=== PATIENT | female | born 1940 | race Caucasian/White ===

== ENCOUNTER 2016-06-28 20:52 | Inpatient (IN) | payer BC, MEDICARE ==
--- NOTE | ~2016-06-28 | CT71 ---
[facility] A Service of [facility] & [facility] RADIOLOGY TEXT RESULTS PATIENT: SUNNY HENDERSON LOCATION: [facility] 227-01 : 42 UNIT #: [id number] AGE: [address]: Uri Tse MD SEX: F ORDER DR: [id number] [facility] [address]. [place], [place] [address] [id number] I MR#: [id number] Acc #: [id number] NAME: SUNNY HENDERSON. : 1940 SEX: F STUDY DATE/TIME: 06/28/2016 19:31 UNIT: CEDOF ROOM: 14739 STUDY DESCRIPTION: CT Head Wo Contrast Attending Physician: Uri Tse M.D. Ordering Physician: Tamika Jovel M.D. Primary Care Physician: Efraín Tse M.D. MEDICAL IMAGING REPORT This report is preliminary unless electronic signature is present EXAM CT head without IV contrast. COMPARISON STUDIES August 28, 2013, January 22, 2007. INDICATIONS 76-year-old female with altered mental status, dizziness and confusion today. TECHNIQUE This CT exam was performed with one or more of the following radiation dose reduction techniques: automatic exposure control, adjustment of mA and/or kV according to patient size, and iterative reconstruction. 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 Visualized mastoid air cells and middle ears are well-aerated. Mucous retention cyst versus polyp is stable in the posterior left sphenoid sinus. Stable nonspecific calcification involving the left globe. There is no abnormal extraaxial fluid collection. No mass effect. No acute intracranial hemorrhage. 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 There is mild cerebral and cerebellar volume loss. This is grossly stable. There is mild bilateral white matter periventricular hypoattenuation which is stable, consistent with mild chronic small vessel ischemic change. No convincing evidence of acute ischemia. IMPRESSION 1. No acute intracranial abnormality. Mild chronic small vessel ischemic changes are stable. 2. There is stable mild cerebral and cerebellar volume loss. 3. Small mucous retention cyst versus polyp in the left sphenoid [facility] A Service of [facility] & [facility] RADIOLOGY TEXT RESULTS PATIENT: SUNNY HENDERSON LOCATION: [place] [address] : 42 UNIT #: [id number] AGE: [address]: Uri Tse MD SEX: F ORDER DR: maritza dailey. 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 Dictated by... Wil Mckeon M.D. THIS IS AN ELECTRONICALLY VERIFIED REPORT Wil Mckeon M.D. at 07/02/2016 1:23 PM BLM/pcl TD: 06/28/2016 22:36 JOB #: [id number] MEDICAL IMAGING REPORT Page 1 of 1 COPY
--- NOTE | ~2016-06-28 | DS ---
Unit #: [id number] #: [id number] Patient: SUNNY HENDERSON [id number] [address] [place], [place] [address] [id number] I MR#: [id number] NAME: SUNNY HENDERSON. ROOM: 227 Age: 76 Sex: F Admission Date: 06/28/2016 : 1940 Discharge Date: 07/01/2016 Attending Physician: Uri Tse M.D. Primary Care Physician: Efraín Tse M.D. DISCHARGE SUMMARY PRINCIPAL DISCHARGE DIAGNOSES 1. Acute mental status change secondary to delirium, secondary to urinary tract infection. 2. ESBL e-coli urinary tract infection. 3. Type 2 diabetes mellitus with hypoglycemia. 4. Microcytic anemia with low normal B12. 5. Mild renal insufficiency of unknown duration. 6. Hypertension. 7. Osteoporosis. PROCEDURES PERFORMED None. CONSULTANTS None. REASON FOR HOSPITALIZATION. The patient is a 76-year-old white female with a history of type 2 diabetes mellitus, hypertension and osteoporosis, admitted through the emergency room with mild confusion, urinary tract infection, afebrile, white count normal, mild renal insufficiency, urinalysis consistent with urinary tract infection, mild anemia with slightly low MCV. Chest x-ray with cardiomegaly. No active disease. CT scan of the head no active disease. The patient was admitted for further evaluation and therapy. HOSPITAL COURSE The patient was started on IV fluids. Her blood sugar was 67, so her diabetic medications were held. She was placed on Accu-Cheks morning and evening. DVT prophylaxis with Lovenox. Iron, B12 and folic acid were sent, as well as urine culture. Her B12 was only 188. Folic acid, ferritin, iron and TIBC were normal. She was started on IM B12 while here, which will be switched to sublingual. Repeat BMP showed her creatinine to be 1.5 with a GFR of 34. Urine culture grew greater than 105 ESBL e-coli sensitive to Macrobid, resistant to Bactrim, obviously cephalosporins and ampicillin. Note that her lactic was normal on admission. Showed slight improvement in renal function. CT scan of the head without contrast on admission showed on active disease. EKG showed a left bundle branch block, which was no change from previous tracings. In any case, the patient is asymptomatic now, even though she is not on appropriate antibiotics. DISCHARGE MEDICATIONS 1. Macrobid one p.o. b.i.d. for seven days. 2. She is to discontinue her Glucophage and Micronase until seen. Unit #: [id number] #: [id number] Patient: SUNNY HENDERSON 3. She is on Lopressor 25 mg b.i.d. 4. Evista 60 mg p.o. daily. 5. B12 1000 mcg sublingual daily. FOLLOWUP Will need to follow up with a CBC, BMP and urinalysis in the office. DIET Constant carb diet. Dictated by... Uri Tse M.D. VERA/david TD: 07/02/2016 11:28 JOB #: [id number] DISCHARGE SUMMARY Page 1 of 1 X Uri Tse MD X DISCHARGE SUMMARY
--- NOTE | ~2016-06-28 | EKG ---
PATIENT: SUNNY HENDERSON UNIT #: [id number] Ventricular Rate: 74 BPM Atrial Rate: 74 BPM P-R Interval: 174 ms QRS Duration: 126 ms Q-T Interval: 440 ms QTC Calculation(Bezet): 488 ms P [place]: 43 degrees Calculated R [place]: 7 degrees Calculated T [place]: 108 degrees Diagnosis Line: Normal sinus rhythm Diagnosis Line: Left bundle branch block with repolarization Diagnosis Line: abnormality Diagnosis Line: Abnormal ECG Diagnosis Line: When compared with ECG of 24-JUL-2015 15:28, Diagnosis Line: No significant change was found Diagnosis Line: Confirmed by QUANG CAMPO MD ([id number]) on 06/29/2016 Diagnosis Line: 9:40:13 AM INTERPRETING MD: JAHAIRA MAE
--- NOTE | ~2016-06-28 | CR72 ---
[facility] A Service of [facility] & [facility] RADIOLOGY TEXT RESULTS PATIENT: SUNNY HENDERSON LOCATION: [place] [address] : 42 UNIT #: [id number] AGE: [address]: Uri Tse MD SEX: F ORDER DR: [id number] [facility] [address]. [place], [place] [address] [id number] E MR#: [id number] #: [id number] NAME: SUNNY HENDERSON. : 1940 SEX: F STUDY DATE/TIME: 06/28/2016 18:49 UNIT: [facility] ROOM: STUDY DESCRIPTION: CR Chest Single View Portable Attending Physician: Tamika Jovel M.D. Ordering Physician: Tamika Jovel M.D. Primary Care Physician: Efraín Tse M.D. MEDICAL IMAGING REPORT This report is preliminary unless electronic signature is present EXAM Portable chest 06/28/2016 HISTORY Fever and nausea for 2 weeks. FINDINGS There is mild cardiac enlargement. There is poor inspiratory result with bibasilar atelectasis. The upper lungs are clear. There are no pleural effusions. Degenerative change and scoliosis in the thoracic spine. Old fracture deformity involving the mid-right clavicle. IMPRESSION Cardiomegaly. No active pulmonary disease. Dictated by... Saul Pinto M.D. THIS IS AN ELECTRONICALLY VERIFIED REPORT Saul Pinto M.D. at 06/29/2016 2:13 PM KRT/pcl TD: 06/28/2016 21:56 JOB #: [id number] MEDICAL IMAGING REPORT Page 1 of 1 COPY
--- NOTE | ~2016-06-28 | HP ---
Unit #: [id number] #: [id number] Patient: SUNNY HENDERSON [id number] [address] [address] [id number] I MR#: [id number] NAME: SUNNY HENDERSON. ROOM: 215 Age: 76 Sex: F Admission Date: 06/28/2016 : 1940 Attending Physician: Uri Tse M.D. Primary Care Physician: Efraín Tse M.D. HISTORY AND PHYSICAL HISTORY OF PRESENT ILLNESS 76-year-old white female with history of type 2 diabetes mellitus, hypertension, osteoporosis, hiatal hernia repair, admitted through the emergency room with mental status changes and urinary tract infection. Currently asymptomatic, afebrile, normal white count, slightly anemia, slight renal insufficiency, obvious abnormal urinalysis. Chest x-ray - cardiomegaly, no active disease. CT scan of the head - no active disease. Has been admitted for treatment for the urinary tract infection. ALLERGIES She has stated allergy to codeine. MEDICATIONS Her medications prior to admission: 1. Glucophage 850 mg b.i.d. 2. Micronase 5 mg b.i.d. 3. Metoprolol tartrate 25 mg b.i.d. 4. Evista 60 mg daily. PAST SURGICAL HISTORY 1. Hiatal hernia repair. 2. Left knee scope. 3. Umbilical hernia repair. 4. Tubal ligation. 5. Tonsillectomy. 6. Hysterectomy. 7. Varicose vein stripping. PAST MEDICAL HISTORY 1. Hypertension. 2. Type 2 diabetes mellitus. 3. Osteoporosis. SOCIAL HISTORY Employed at [employer]. Nonsmoker, nondrinker. No street drug use. FAMILY HISTORY Noncontributory. PHYSICAL EXAMINATION GENERAL: She is awake, alert, oriented x3, in no acute distress. VITAL SIGNS: Afebrile. Pulse 67, respirations 16, blood pressure 137/85. Room air O2 seat 97%. HEENT: Unremarkable except for pale mucous membranes. Unit #: [id number] #: [id number] Patient: SUNNY HENDERSON NECK: Supple without JVD, bruits, adenopathy or thyromegaly. CHEST: Clear to auscultation. HEART: Regular rate and rhythm without any murmurs, rubs or gallops. ABDOMEN: Soft, nondistended, nontender with positive bowel sounds and no hepatosplenomegaly. EXTREMITIES: No clubbing, cyanosis or edema. /RECTAL: Deferred. NEUROLOGICAL: Grossly intact. DIAGNOSTIC STUDIES CARDIOVASCULAR: EKG shows normal sinus rhythm with a left bundle branch block which is no change from July 24, 2015. LABORATORY: CBC is normal except for a hemoglobin of 10.8 with a low MCV and low MCH and an elevated RDW. Cardiac enzymes normal. PT and PTT normal. Lactic acid normal. BMP normal except for a creatinine of 1.6 with a GFR of 31.4. Urinalysis shows 3+ leukocytes, positive for nitrates, 100 to 200 white blood cells per high power field, 4+ bacteria. IMAGING: Single view chest x-ray - cardiomegaly, no active disease. CT scan of the head shows small vessel disease, stable mild cerebral and cerebellar volume loss, small retention cyst versus polyp in left sphenoid sinus, no change. It should be noted the patient's blood sugar when she arrived was 67. It dropped to 59 overnight. This morning it is 103. IMPRESSION 1. Urinary tract infection. 2. Acute delirium. 3. Microcytic anemia. 4. Type 2 diabetes mellitus with hypoglycemia. 5. Renal insufficiency of unknown duration. 6. Hypertension. 7. Osteoporosis. PLAN Urine culture, IV antibiotics. Hold hypoglycemics. Accu-Cheks a.c. and h.s. Low dose sliding scale insulin. DVT prophylaxis. Hydrate. Follow labs. Workup the anemia with an iron, B12 and folic acid. Further evaluation pending results of the above. Dictated by Evan Bella/victorino TD: 06/29/2016 08:09 JOB #: [id number] Unit #: [id number] #: [id number] Patient: SUNNY HENDERSON HISTORY AND PHYSICAL Page 1 of 1 X Uri Tse MD HISTORY AND PHYSICAL
[2016-06-28 19:14] LABS: BASOPHIL# 0.1 X10e3 (0-0.3); BASOPHIL% 1.3 % (0-2.5); EOSINOPHIL# 0.1 X10e3 (0-0.7); HEMATOCRIT 33.5 % (35.0-45.0); HEMOGLOBIN 10.8 gm/dL (12.0-16.0); LYMPHOCYTE% 31.7 % (17.0-45.0); MEAN CELL VOLUME 82.8 FL (83-96); MEAN CORPUSCULAR HEMOGLOBIN 26.6 PG (28-34); MEAN CORPUSCULAR HGB CONC 32.1 g/dL (30-36); MEAN PLATELET VOLUME 8.6 FL (6.5-11.5); MONOCYTE# 0.8 X10e3 (0-1.0); MONOCYTE% 8.9 % (3.0-12.0); NEUTROPHIL# 5.4 X10e3 (1.5-7.1); NEUTROPHIL% 57.1 % (40-75); PLATELET COUNT 296 X10e3 (140-420); RED BLOOD COUNT 4.05 X10e (3.90-5.30); RED CELL DISTRIBUTION WIDTH 15.8 % (11.0-15.5); WHITE BLOOD COUNT 9.5 X10e3 (4.0-10.5)
[2016-06-28 19:15] LABS: DIFF IND NO
[2016-06-28 19:22] LABS: POC - CKMB 1.9 ng/mL (0.0-7.9); POC - TROPONIN <0.05 ng/mL (<=0.05)
[2016-06-28 19:28] LABS: URINE SOURCE CLEAN CATCH
[2016-06-28 19:28] LABS: INR 1.1; PARTIAL THROMBOPLASTIN TIME 23.6 SECONDS (23.5-31.3); PROTHROMBIN TIME (PATIENT) 11.4 SECONDS (9.6-11.5)
[2016-06-28 19:34] LABS: URINE APPEARANCE CLEAR; URINE BILIRUBIN NEG (NEG); URINE BLOOD NEG (NEG); URINE COLOR YELLOW; URINE GLUCOSE NEG (NEG); URINE KETONE NEG (NEG); URINE LEUKOCYTE ESTERASE 3+ (NEG); URINE NITRATE POS (NEG); URINE PROTEIN NEG (NEG); URINE SPECIFIC GRAVITY 1.015 (1.003-1.035); URINE UROBILINOGEN 0.2 MG/DL (NEG)
[2016-06-28 19:40] LABS: CULTURE INDICATED? YES; URINE BACTERIA AUWI 4+ (NEGATIVE); URINE SQUAMOUS EPITHELIAL CELL NONE SEEN /[HPF]; UWBCS1 AUWI 100-200 (0-5)
[2016-06-28 19:40] LABS: ALBUMIN SERUM 3.6 g/dL (3.5-5.0); ALKALINE PHOSPHATASE 48 U/L (32-92); ALT (SGPT) 14 U/L (10-40); AST (SGOT) 15 U/L (10-42); BILIRUBIN,TOTAL 0.4 mg/dL (0.2-2.0); BLOOD UREA NITROGEN 22 mg/dL (9-23); BUN/CREATININE RATIO 13.75; CARBON DIOXIDE 22 mmol/L (22-31); CHLORIDE 104 mmol/L (100-111); CREATININE SERUM 1.6 mg/dL (0.6-1.4); GLOM FILT RATE Estimated 31.4 mL/min (>60); GLUCOSE FASTING 74 mg/dL (70-110); POTASSIUM 4.4 mmol/L (3.5-5.1); PROTEIN TOTAL SERUM 7.3 g/dL (6.0-8.3); SODIUM 135 mmol/L (135-145)
[2016-06-28 19:42] LABS: BILIRUBIN, DIRECT <0.1 mg/dL (0.0-0.2); BILIRUBIN,INDIRECT 0.3 mg/dL (0.0-0.9)
[~2016-06-28 20:52] MED LIST: ASPIRIN PO; EVISTA60 M1 PO; EVISTA60 MG PO; GLUCOPHAGE850 MG PO; GLYBURIDE PO; LOVAZA1 G PO; METFORMIN PO; METOPROLOL TAR25 MG PO; METOPROLOL TART25 MG PO; MICRONASE5 M2 PO; NEXIUM PO; RALOXIFENE HCL60 MG PO; VITAMIN D31000 UNI1 PO; ZANTAC150 MG PO
[2016-06-29 10:15] LABS: FOLATE (FOLIC ACID) 8.4 ng/mL (>5.8)
[2016-06-29 10:32] LABS: IRON SERUM 106 ug/dL (28-170); TOTAL IRON BINDING CAPACITY 350 ug/dL (269-535); TRANSFERRIN 250 mg/dL (192-382); TRANSFERRIN SATURATION 30 % (20-50)
[2016-06-30 06:29] LABS: HEMATOCRIT 31.8 % (35.0-45.0); HEMOGLOBIN 10.2 gm/dL (12.0-16.0); MEAN CELL VOLUME 83.2 FL (83-96); MEAN CORPUSCULAR HEMOGLOBIN 26.7 PG (28-34); MEAN CORPUSCULAR HGB CONC 32.1 g/dL (30-36); MEAN PLATELET VOLUME 9.2 FL (6.5-11.5); RED BLOOD COUNT 3.83 X10e (3.90-5.30); RED CELL DISTRIBUTION WIDTH 15.7 % (11.0-15.5); WHITE BLOOD COUNT 6.9 X10e3 (4.0-10.5)
[2016-06-30 07:23] LABS: CALCIUM SERUM 8.7 mg/dL (8.4-10.2); CREATININE SERUM 1.5 mg/dL (0.6-1.4); POTASSIUM 4.3 mmol/L (3.5-5.1)
[2016-07-01] MEDS ORDERED: MACROBID100 MG PO (08:49)
== END 2016-07-01 08:59 | disposition home or self-care (01) | DRG 690 ==
LOC: CED 20:52 → CEDOF 21:30 → C2A 23:18
PROVIDERS: Internal Medicine; Student in an Organized Health Care Education/Training Program
DX: N39.0 Urinary tract infection, site not specified (principal); E11.649 Type 2 diabetes mellitus with hypoglycemia without coma; D53.9 Nutritional anemia, unspecified; Z88.5 Allergy status to narcotic agent; Z98.51 Tubal ligation status; Z90.710 Acquired absence of both cervix and uterus; I10 Essential (primary) hypertension; M81.0 Age-related osteoporosis without current pathological fracture; N28.9 Disorder of kidney and ureter, unspecified; B96.20 Unspecified Escherichia coli [E. coli] as the cause of diseases classified elsewhere
CPT/HCPCS: 36415; 70450; 71010; 80048; 80076; 81003; 82553; 82607; 82728; 82746; 82947; 83540; 83550; 83605; 84484; 85025; 85027; 85610; 85730; 87086; 87088; 87186; 93005; 96361; 96374; 99285; J0696; J1650; J1956; J2405; J2543; J3420

== ENCOUNTER → 2016-08-10 | Outpatient (CLI) | payer BC, MEDICARE ==
[~2016-08-10] MED LIST changes: +MACROBID100 MG PO
--- NOTE | ~2016-08-10 | XA166 ---
[facility] A Service of [facility] & [facility] RADIOLOGY TEXT RESULTS PATIENT: SUNNY HENDERSON LOCATION: [facility]IV[facility] : 42 UNIT #: [id number] AGE: [address]: Uri Tse MD SEX: F ORDER DR: [id number] [facility] [address]. [place], [place] [address] [id number] O MR#: [id number] Acc #: [id number] NAME: SUNNY HENDERSON. : 1940 SEX: F STUDY DATE/TIME: 08/10/2016 13:45 UNIT: [facility] ROOM: STUDY DESCRIPTION: XA PICC Line Placement WO Port Attending Physician: Uri Tse M.D. Referring Physician: Uri Tse M.D. Ordering Physician: Uri Tse M.D. Primary Care Physician: Johanne Mcdermott A.P.R.N. MEDICAL IMAGING REPORT This report is preliminary unless electronic signature is present EXAM PICC line placement under ultrasound and fluoroscopy HISTORY IV access for long-term antibiotics. FINDINGS PRE-PROCEDURE The procedure was explained to the patient and/or patient accounts receivable representative including risks, benefits, potential complications and potential for alternative forms of treatment. Informed consent was obtained, and prior to initiating the procedure a formal timeout procedure was performed. PROCEDURE Using full standard sterile barrier technique, including caps, gowns, gloves, masks, as well as sterile skin preparation and standard sterile draping, the arm was prepped and draped in the usual fashion, and real-time sterile ultrasound guidance was used to localize an arm vein and to confirm vessel patency. A hard copy ultrasound image was recorded. After local anesthesia with 1% Xylocaine, the right basilic vein was punctured using real-time sterile ultrasound guidance, and an 0.018 guidewire was advanced into the superior vena cava, using fluoroscopic guidance. A 4 [place] single-lumen PICC was then measured to 31 cm and deployed with the tip positioned in the superior vena cava. The position of the line was documented with a radiographic image. The line was secured in place with an adhesive dressing and an antibiotic patch was applied. Total fluoro time was 1.9 minutes. Skin exposure 8 mGy air kerma standard. IMPRESSION Successful placement of a 4 [place] single-lumen PowerPICC via the arm under ultrasound and fluoroscopic guidance. The tip of the PICC is in STS. [facility] A Service of [facility] & [facility] RADIOLOGY TEXT RESULTS PATIENT: SUNNY HENDERSON LOCATION: [facility] : 42 UNIT #: [id number] AGE: [address]: Uri Tse MD SEX: F ORDER DR: good position in the superior vena cava. Dictated by... Robinson Murrell M.D. THIS IS AN ELECTRONICALLY VERIFIED REPORT Robinson Murrell M.D. at 08/11/2016 7:14 AM IZZY/raisa TD: 08/10/2016 16:34 JOB #: [id number] MEDICAL IMAGING REPORT Page 1 of 1 COPY
== END | disposition home or self-care (01) ==
LOC: CIVR 13:11
PROC: 02HV33Z Insertion of Infusion Device into Superior Vena Cava, Percutaneous Approach (ICD-10-PCS; principal; 2016-08-10)
DX: N39.0 Urinary tract infection, site not specified (principal); Z45.2 Encounter for adjustment and management of vascular access device
CPT/HCPCS: 76937; 77001; C1751; J1642

== ENCOUNTER 2016-08-18 14:43 | Emergency (ER) | payer BC, MEDICARE ==
--- NOTE | ~2016-08-18 | CR281 ---
[facility] A Service of [facility] & [facility] RADIOLOGY TEXT RESULTS PATIENT: SUNNY HENDERSON LOCATION: [facility] : 42 UNIT #: [id number] AGE: [address]: Yakelin Arrington SEX: F ORDER DR: [id number] [facility] [address] [place], [place] [address] [id number] E MR#: [id number] Acc #: [id number] NAME: SUNNY HENDERSON. : 1940 SEX: F STUDY DATE/TIME: 08/18/2016 15:54 UNIT: [facility] ROOM: STUDY DESCRIPTION: CR Wrist Min 3 View Lt Attending Physician: Yakelin Arrington P.A.-C. Ordering Physician: Yakelin Arrington P.A.-C. Primary Care Physician: Johanne Mcdermott A.P.R.N. MEDICAL IMAGING REPORT This report is preliminary unless electronic signature is present EXAM Left wrist, 3 views. INDICATIONS Left wrist pain and swelling today after injuring it on a door. COMPARISON No comparisons. FINDINGS There is a cortical deformity on the AP view only of the radial aspect of the distal radius. No other abnormality of the radius is seen on any of the other views. This may represent an impacted fracture. Correlate clinically with location of patient's pain and the mechanism of injury. There is mineralization of the TFCC. Carpal alignment maintained. There is narrowing of the radiocarpal joint. IMPRESSION A focal cortical deformity of the distal radius along the radial aspect of the above seen only on one-view. This may represent a impacted fracture. Please correlate clinically with location of the patient's pain and the mechanism of injury. Dictated by... Vinod Lopez M.D. THIS IS AN ELECTRONICALLY VERIFIED REPORT Vinod Lopez M.D. at 08/19/2016 7:20 AM VELMA/moreno TD: 08/18/2016 22:34 JOB #: [id number] [facility] A Service of [facility] & [facility] RADIOLOGY TEXT RESULTS PATIENT: SUNNY HENDERSON LOCATION: [facility] #: [id number] : 42 UNIT #: [id number] AGE: [address]: Yakelin Arrington SEX: F ORDER DR: MEDICAL IMAGING REPORT Page 1 of 1 COPY
[2016-08-18 15:24] LABS: BASOPHIL# 0.1 X10e3 (0-0.3); BASOPHIL% 0.8 % (0-2.5); EOSINOPHIL% 0.2 % (0.0-7.0); HEMATOCRIT 33.6 % (35.0-45.0); HEMOGLOBIN 10.9 gm/dL (12.0-16.0); LYMPHOCYTE# 1.3 X10e3 (1.0-3.5); MEAN CELL VOLUME 83.1 FL (83-96); MEAN CORPUSCULAR HGB CONC 32.5 g/dL (30-36); MEAN PLATELET VOLUME 8.8 FL (6.5-11.5); MONOCYTE# 0.8 X10e3 (0-1.0); MONOCYTE% 7.4 % (3.0-12.0); NEUTROPHIL# 9.3 X10e3 (1.5-7.1); NEUTROPHIL% 80.6 % (40-75); PLATELET COUNT 209 X10e3 (140-420); RED BLOOD COUNT 4.04 X10e (3.90-5.30); RED CELL DISTRIBUTION WIDTH 16.2 % (11.0-15.5); WHITE BLOOD COUNT 11.5 X10e3 (4.0-10.5)
[2016-08-18 15:27] LABS: DIFF IND NO
[2016-08-18 15:55] LABS: BUN/CREATININE RATIO 12.85; CALCIUM SERUM 9.5 mg/dL (8.4-10.2); CREATININE SERUM 1.4 mg/dL (0.6-1.4); GLOM FILT RATE Estimated 36.9 mL/min (>60)
== END 2016-08-18 17:35 | disposition home or self-care (01) ==
LOC: CED 14:43
PROVIDERS: Physician Assistant
DX: S52.502A Unspecified fracture of the lower end of left radius, initial encounter for closed fracture (principal); E11.9 Type 2 diabetes mellitus without complications; I10 Essential (primary) hypertension; M19.90 Unspecified osteoarthritis, unspecified site; Z88.5 Allergy status to narcotic agent; W22.8XXA Striking against or struck by other objects, initial encounter; Y92.009 Unspecified place in unspecified non-institutional (private) residence as the place of occurrence of the external cause
CPT/HCPCS: 29125; 36415; 73110; 80048; 85025; 85652; 86140; 99284